=== PATIENT | female | born 1945 | race Caucasian/White ===

== ENCOUNTER 2025-03-27 09:59 | Outpatient (CLI) | payer OTHER, SELFPAY | END 2025-03-27 10:00 | disposition home or self-care (01) | LOC: NFLDREF 03-31 16:36 | PROVIDERS: PCP Family Medicine; Referring Provider Family Medicine; Visit Provider Family Medicine | DX: N39.3 Stress incontinence (female) (male) (principal) | CPT/HCPCS: 87086 ==